=== PATIENT | female | born 1995 ===

== ENCOUNTER 2018-06-14 13:32 | Emergency (ER) | payer BC ==
[2018-06-14 13:40] VITALS: RESP 16; O2SAT 100
--- NOTE | 2018-06-14 14:31 | ED PDOC ---
HPI: Female Pain Time Seen by Provider: 06/14/18 13:53 Chief Complaint (Nursing): Female Genitourinary History Per: Patient Onset/Duration Of Symptoms: Days (2) Current Symptoms Are (Timing): Still Present Severity: Mild Pain Scale Rating Of: 2 Quality Of Discomfort: Cramping Additional Complaint(s): Lower abd cramping assoc with mild vaginal bleeding x 2 days. Approx 6 weeks preg Past Medical History Vital Signs: Last Vital Signs Temp 98 F 06/14/18 13:37 Pulse 103 H 06/14/18 13:37 Resp 16 06/14/18 13:37 BP 132/89 06/14/18 13:37 Pulse Ox 100 06/14/18 13:37 - Medical History PMH: No Chronic Diseases - Family History Family History: States: Unknown Family Hx - Allergies Allergies/Adverse Reactions: Allergies Allergy/AdvReac Type Severity Reaction Status Date / Time No Known Allergies Allergy Verified 06/14/18 13:35 Review of Systems Gastrointestinal: Positive for: Abdominal Pain Genitourinary Female: Positive for: Vaginal Bleeding Musculoskeletal: Negative for: Back Pain Physical Exam - Physical Exam Appears: Positive for: Non-toxic, No Acute Distress Skin: Positive for: Normal Color, Warm, DRY Gastrointestinal/Abdominal: Positive for: Bowel Sounds, Soft, Tenderness Pelvic Exam: Positive for: External Exam Normal, No Masses, Blood (Small amount). Negative for: Tender Adnexa, Tender Uterus - ECG O2 Sat by Pulse Oximetry: 100 Disposition - Clinical Impression Clinical Impression: Threatened - Patient ED Disposition Is Patient to be Admitted: Transfer of Care - Disposition Disposition: Transfer of Care Disposition Time: 15:00 Condition: FAIR Forms: [employer] (Armenian) Patient Signed Over To: Cheli Carreon
[2018-06-14 15:19] LABS: BASO # 0.1 K/uL (0.0-0.2); BASO % 0.7 % (0.0-2.0); EOS # 0.3 K/uL (0.0-0.7); EOS % 4.1 % (0.0-4.0); HEMOGLOBIN 10.4 g/dL (12.0-16.0); LYMPH # 1.9 K/uL (1.0-4.3); LYMPH % 27.6 % (20.0-40.0); MEAN CELL VOLUME 72.5 fl (81.0-99.0); MEAN CORPUSCULAR HEMOGLOBIN 23.8 pg (27.0-31.0); MEAN CORPUSCULAR HGB CONC 32.8 g/dL (33.0-37.0); MEAN PLATELET VOLUME 9.3 fl (7.2-11.7); MONO # 0.5 K/uL (0.0-0.8); NEUT # 4.1 K/uL (1.8-7.0); NEUT % 59.6 % (50.0-75.0); NRBC % 0.1 % (0.0-0.0); RBC 4.36 Mil/uL (3.80-5.20); RED CELL DISTRIBUTION WIDTH 18.4 % (11.5-14.5); WHITE BLOOD COUNT 6.9 K/uL (4.8-10.8)
--- NOTE | 2018-06-14 15:20 | ED PDOC ---
- Laboratory Results Result Diagrams: 06/14/18 15:05 06/14/18 15:05 - ECG O2 Sat by Pulse Oximetry: 100 (RA) Pulse Ox Interpretation: Normal Medical Decision Making Medical Decision Making: Patient signed out to me by Dr. Thompson pending US results, labs and reassessment. Scribe Attestation: Documented by Danna Georges, acting as a scribe for Cheli Carreon MD. Provider Scribe Attestation: All medical record entries made by the Scribe were at my direction and personally dictated by me. I have reviewed the chart and agree that the record accurately reflects my personal performance of the history, physical exam, medical decision making, and the department course for this patient. I have also personally directed, reviewed, and agree with the discharge instructions and disposition. 1730: US confirms IUP with HR of 102. Pt advised to follow up with PMD in 48 hours for repeat hCG level and given referral for women's health. Return parameters discussed with the patient. Disposition - Clinical Impression Clinical Impression: Threatened - POA Present On Arrival: None - Disposition [facility] Disposition: Routine/Home Disposition Time: 17:30 Condition: FAIR Additional Instructions: Today your blood work confirms you are and the ultrasound shows that you have a very early in the uterus (not an ectopic ). The vaginal bleeding may be caused by an early miscarriage but this will not be confirmed without repeat follow up. Please follow up with your director of exhibits in 48 hours to repeat the hormone levels. Return to the emergency department if you develop severe pain, nausea, vomiting, fever, or other new symptoms. Instructions: Threatened Miscarriage (DC), Bleeding With (DC) Forms: [employer] (Turkmen) Print Language: SLOVENIAN
[2018-06-14 15:32] LABS: ALB/GLOB RATIO 1.2 (1.0-2.1); ALBUMIN 4.6 g/dL (3.5-5.0); ALT/SGPT 27 U/L (9-52); AST/SGOT 25 U/L (14-36); BLOOD UREA NITROGEN 11 mg/dl (7-17); CALCIUM 9.9 mg/dL (8.4-10.2); GFR NON-AFRICAN AMERICAN > 60
--- NOTE | 2018-06-14 17:31 | US ---
Date of service: 06/14/18 Indication: Rule out ectopic Comparison: None available. Technique: Transvaginal pelvic ultrasound Findings: The uterus measures approximately 6.7 x 4.0 x 4.2 cm. Anteverted. Cervix length measures approximately 3.0 cm. There is a single intrauterine fetus present. 2 mm yolk sac. The gestational sac measures 1.2 cm and is compatible with a gestational age of 5 weeks 2 days. The crown-rump length measures 0.2 cm and is compatible with a gestational age of 5 weeks 5 days. There is heart motion which measured 102.5 BPM. The right ovary measures 2.0 x 1.4 x 1.5 cm. 0.9 x 0.6 x 1.0 cm right paraovarian cyst. The left ovary measures 3.0 x 1.3 x 2.2 cm. Blood flow was demonstrated to both ovaries. Trace pelvic free fluid. Impression: Live single intrauterine with estimated gestational age 5 weeks 2 days by gestational sac calculation and 5 weeks 5 days by crown-rump length calculation. heart rate 102.5 bpm. Advise an anomaly screen at 16-18 weeks gestational age
[2018-06-14 17:32] VITALS: BP 128/79; PULSE 87; TEMP 98
== END 2018-06-14 17:31 | disposition home or self-care (01) ==
LOC: H.ER 13:32
DX: O20.0 Threatened abortion (principal); Z3A.01 Less than 8 weeks gestation of pregnancy